=== PATIENT | male | born 1995 | race Caucasian/White ===

== ENCOUNTER 2023-08-18 21:59 | Emergency (ER) | payer BC ==
--- NOTE | 2023-08-18 22:48 | ED Physician Documentation ---
History of Present Illness - Stated complaint Stated Complaint: R ANKLE INJ - Chief complaint Chief Complaint: Trauma Ext - History obtained from History obtained from: Patient - Additonal information Additional information: 27yM p/w injury To right ankle after twisting it while stepping in a hole. He did not bear weight initially but is able to bear weight now. Endorses swelling and pain to the outer ankle. PD PAST MEDICAL HISTORY - Past Medical History Past Medical History: Yes Cardiovascular: None Respiratory: None Neuro: None Endocrine/Autoimmune: None GI: None : None HEENT: Chronic vision loss Psych: None Musculoskeletal: None Derm: None - Past Surgical History HEENT: Other - Present Medications Home Medications: Ambulatory Orders Medication Instructions Recorded Confirmed No Known Home Medications 08/18/23 08/18/23 - Allergies Allergies/Adverse Reactions: Allergies Allergy/AdvReac Type Severity Reaction Status Date / Time tree nut Allergy Edema Verified 08/18/23 22:05 - Social History Does the pt smoke?: No Smoking Status: Never smoker Does the pt drink ETOH?: Yes Does the pt have substance abuse?: No - Immunizations Immunizations are current?: Yes PD ED PE NORMAL - Vitals Vital signs reviewed: Yes - General General: Alert and oriented X 3, No acute distress, Well developed/nourished - HEENT HEENT: Atraumatic, PERRL, EOMI - Derm Derm: Normal color, Warm and dry, Other (No ecchymosis) - Extremities Extremities: Other (Swelling to right lateral malleolus and tender to palpation of right posterior aspect of lateral malleolus. Medial malleolus and fifth metatarsal nontender. Tender with range of motion of right ankle. Able to bear weight without difficulty. CSM intact right lower extremity) Results - Vitals Vitals: Vital Signs - 24 hr 08/18/23 22:05 Temperature 37.3 C Heart Rate 93 Respiratory 16 Rate Blood Pressure 120/84 H O2 Saturation 99 Oxygen O2 Source Room air PD Medical Decision Making - ED course ED course: 27-year-old man presents with likely right ankle sprain. X-rays do not show acute fracture per my wet read. Discussed options with patient and shared decision was made to provide a Yo wrap and crutches since he is traveling. Return precautions given. Plan follow-up outpatient with primary care provider for repeat x-rays in 10 days if no improvement. Departure - Departure Disposition: Home, Self Care Clinical Impression: Ankle sprain Condition: Stable Instructions: ED Sprain Ankle Comments: You were seen in the emergency department for ankle sprain. Please follow-up with your primary care provider and return to the emergency department if you have any new or worsening symptoms or other concerns. Consider repeat xrays in 10 days if no improvement.
[2023-08-18] MEDS: IBUPROFEN 600 MG TABLET PO STA (22:52)
--- NOTE | 2023-08-18 22:54 | XRAY Report ---
PROCEDURE: Ankle 3+V RT INDICATIONS: Trauma TECHNIQUE: 3 views of the ankle were acquired. COMPARISON: None. FINDINGS: Bones: No acute fractures or dislocations. Ankle mortise is normally aligned. No suspicious bony l esions. Soft tissues: Small tibiotalar joint effusion. Achilles tendon appears normal. Moderate lateral ma lleolus soft tissue edema. IMPRESSION: Moderate lateral malleolus soft tissue swelling without underlying fracture or dislocation. If there is persistent clinical concern for a radiographically occult fracture, recommend immobilizat ion and repeat imaging in 10 to 14 days. Reviewed by: Buck Barlow MD on 08/18/2023 10:52 PM PDT Approved by: Buck Barlow MD on 08/18/2023 10:52 PM PDT Station ID: [id number]
[2023-08-18 23:07] VITALS: BP 120/82; O2SAT 100
== END 2023-08-18 23:04 | disposition home or self-care (01) ==
LOC: ED 21:59
DX: S93.401A Sprain of unspecified ligament of right ankle, initial encounter (principal); X50.9XXA Other and unspecified overexertion or strenuous movements or postures, initial encounter
CPT/HCPCS: 73610; 99283; A9270